=== PATIENT | male | born 1960 | race Caucasian/White ===

== ENCOUNTER 2017-01-30 09:09 | Emergency (ER) | payer OTHER ==
[~2017-01-30] VITALS: Ht 162.6 cm; Wt 84.9 kg
[2017-01-30 10:55] LABS: BASOPHIL % 0.6 % (0-2); PLATELET COUNT 172 x10^3mcL (130-400); RED CELL DISTRIBUTION WIDTH 12.9 % (11.5-14.5)
[2017-01-30 11:20] LABS: microscopic required? NO
[2017-01-30 12:04] LABS: POTASSIUM SERUM 4.3 mmol/L (3.5-5.1); SODIUM SERUM 139 mmol/L (136-145)
[2017-01-30 12:05] LABS: ALBUMIN 3.6 g/dL (3.4-5.0); ALKALINE PHOSPHATASE 81 U/L (46-116); ALT/SGPT 36 U/L (16-63); AST/SGOT 22 U/L (15-37); BILIRUBIN TOTAL 0.4 mg/dL (0.20-1.00); CALCIUM 8.6 mg/dL (8.5-10.1); CARBON DIOXIDE 27.2 mmol/L (21-32); CHLORIDE SERUM 101 mmol/L (98-107); CREATININE SERUM 0.9 mg/dL (0.7-1.3); GFR1 > 60 mL/min; GLUCOSE SERUM 105 mg/dL (74-106); MAGNESIUM 1.9 mg/dL (1.8-2.4); TOTAL PROTEIN, SERUM 7.3 g/dL (6.4-8.2)
[2017-01-30 12:06] LABS: T4(THYROXINE) 4.2 ug/dL (4.7-13.3)
[2017-01-30 12:12] LABS: UA SPECIFIC GRAVITY 1.025 (1.005-1.035); urine erythrocyte NEGATIVE (NEGATIVE)
[2017-01-30 12:15] LABS: PHOSPHOROUS 2.6 mg/dL (2.5-4.9)
[2017-01-30 12:17] LABS: AMPHETAMINE QUAL UR NONE DETECTED (NEG <=1000)
[2017-01-30 12:48] VITALS: BP 141/96
== END 2017-01-30 12:48 | disposition home or self-care (01) ==
LOC: ED 09:09
PROVIDERS: Emergency Medicine
DX: F43.20 Adjustment disorder, unspecified (principal); I10 Essential (primary) hypertension
CPT/HCPCS: 36415; Q0092